=== PATIENT | male | born 1945 | race Caucasian/White ===

== ENCOUNTER → 2017-02-01 | Outpatient (CLI) | payer OTHER ==
--- NOTE | 2017-02-23 12:26 | EEG ---
DATE OF SERVICE: 02/01/2017 REASON FOR TESTING: Syncope. DESCRIPTION OF THE PROCEDURE: This EEG was performed using a 21 channel digital electroencephalograph, following international 10-20 system. DESCRIPTION OF RECORDING: From the beginning of the tracing, note the patient' s eyes closed. The background rhythm was mostly consisting of 8 Hz alpha frequency in the posterior occipital leads. No obvious asymmetry is seen. Frequent muscle artifacts are noticed. Photic stimulation was performed with no driving response see. No pathological waves were elicited. More frequent muscle artifacts are seen later in the tracing. Occasional movement artifacts are also seen. The patient remains alert throughout the tracing. No epileptiform discharges were seen. His EKG leads showed a regular rate and rhythm. INTERPRETATION: This awake EEG can be considered within normal limits. There is no asymmetry seen. No epileptiform discharges were noticed. The absence of epileptiform discharges does not rule out the diagnosis of epilepsy, therefore, clinical correlation is recommended. MTDD
== END | disposition home or self-care (01) ==
LOC: NEUROMAIN 08:50
PROVIDERS: ATTEND Internal Medicine
DX: R55 Syncope and collapse (principal)
CPT/HCPCS: 95819

== ENCOUNTER → 2021-04-04 | Outpatient (CLI) | payer OTHER ==
[2021-04-05 01:28] LABS: Hemoglobin A1C 7.5 % (4.0-6.0)
[2021-04-05 15:51] LABS: Urine Creatinine 145.2 mg/dL
[2021-04-05 20:17] LABS: African American GFR (CKD) 61.9 (60.0-200.0); Albumin/Globulin Ratio 2.38 (1.60-3.17); Anion Gap 16.8 mmol/L (4.00-12.00); BUN/Creat Ratio 16.15 Ratio (12.00-20.00); Calcium 9.6 mg/dL (8.7-10.3); Carbon Dioxide 23.2 mmol/L (21.6-31.8); Globulin 2.1 g/dL (1.6-3.3); Non-African American GFR(CKD) 53.4 (60.0-200.0); Potassium 5.6 mmol/L (3.5-5.5); Total Bilirubin 0.3 mg/dL (0.2-1.2); Total Protein 7.1 g/dL (6.2-8.2)
== END | disposition home or self-care (01) ==
LOC: LABWHC1 15:44
PROVIDERS: ATTEND Internal Medicine
DX: E11.9 Type 2 diabetes mellitus without complications (principal)
CPT/HCPCS: 36415; 80053; 82043; 82570; 83036

== ENCOUNTER → 2021-05-30 | Outpatient (CLI) | payer OTHER ==
--- NOTE | 2021-05-30 14:27 | CTL ---
EXAMINATION TYPE: CT Low Dose Lung DATE OF EXAM ORDERED: 05/30/2021 HISTORY: 75-year-old male Z87.891, personal history of tobacco use. Shortness of breath. Lung cancer screening CT DLP: 165.[address] CTDI: 4.2 mGy Automated exposure control for dose reduction was used. SCREENING VISIT: Baseline COMPARISON: None TECHNIQUE: Low dose computed tomography scan was performed through the chest with coronal and sagitta l reconstructions. CT DIAGNOSTIC QUALITY: Satisfactory FINDINGS: Heart normal size without pericardial effusion. Left-sided epicardial fat pad. Scattered three-vessel coronary artery calcifications are present. Mild aortic valvular calcifications. Borderline ectasia ascending aorta 3.5 cm and upper descending thoracic aorta 3.0 cm. Mild atheroscle rotic arch calcifications with conventional branching anatomy. Trace bilateral gynecomastia. No thoracic lymphadenopathy by CT size criteria. Mild diffuse bronchial wall thickening. No consolidation or pleural effusion. Mild centrilobular emp hysema. 4 mm right mid lung pulmonary nodule, axial image 148. 3 mm peripheral right upper lobe pulmonary nodule, axial image 62. 3 mm posterior right upper lobe pulmonary nodule, axial image 38. Tiny hiatal hernia. Visualized upper abdomen otherwise shows no gross abnormality. 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 Mild superior endplate deformity L1 suggesting age indeterminate compression injury. IMPRESSION: 1. LungRADS 2, Benign; a few 4 mm and smaller pulmonary nodules on baseline screening. 2. COPD with mild emphysema. Three-vessel coronary artery calcifications. Recommend smoking cessation . 3. Age-indeterminate mild superior endplate deformity of L1. Clinically correlate. CT LUNG RAD AND CT CHEST RECOMMENDATION: Lung-Rad 2 Benign Appearance or Behavior: Continue annual sc reening with LDCT in 12 months.
== END | disposition home or self-care (01) ==
LOC: RADCTMAIN 12:59
DX: R91.1 Solitary pulmonary nodule (principal); J43.9 Emphysema, unspecified; M43.8X6 Other specified deforming dorsopathies, lumbar region
CPT/HCPCS: 71271

== ENCOUNTER → 2023-04-09 | Outpatient (CLI) | payer OTHER ==
--- NOTE | 2023-04-09 12:55 | CT ---
EXAMINATION TYPE: CT lumbar spine wo con DATE OF EXAM: 04/09/2023 12:48 PM COMPARISON: None HISTORY: low back pain Technique: CT DLP: 942 mGycm Automated exposure control for dose reduction was used. Unenhanced CT of the lumbar spine was performed. Bone and soft tissue window settings are submitted as well as coronal and sagittal reconstructions. Findings: There is an acute superior corner fracture of the posterior L1 vertebral segment with mild proximal 1 0% retropulsion. Remaining lumbar vertebral segments are normal in height and alignment. There is mil d degenerative disc disease throughout the lumbar region with mild spondylosis and mild disc space na rrowing. There is mild vacuum phenomenon at the L3-4 and L5-S1 levels. The facet joints are intact. Sacrum and SI joints are normal. The paraspinal soft tissues are unremar kable. IMPRESSION: 1. Acute Fracture of the L1 vertebral segment with slight retropulsion as described above. 2. Mild degenerative disease throughout the lumbar region.
== END | disposition home or self-care (01) ==
LOC: RADCTMAIN 11:38
DX: M51.36 Other intervertebral disc degeneration, lumbar region (principal); S32.019A Unspecified fracture of first lumbar vertebra, initial encounter for closed fracture; M47.816 Spondylosis without myelopathy or radiculopathy, lumbar region; M48.061 Spinal stenosis, lumbar region without neurogenic claudication; R93.89 Abnormal findings on diagnostic imaging of other specified body structures; X58.XXXA Exposure to other specified factors, initial encounter
CPT/HCPCS: 72131

== ENCOUNTER → 2023-06-11 | Outpatient (CLI) | payer OTHER ==
--- NOTE | 2023-06-14 08:39 | MR ---
EXAMINATION TYPE: MR lumbar spine wo con DATE OF EXAM: 06/11/2023 10:36 AM CLINICAL INDICATION:Male, 77 years old with history of M54.50 low back pain; PHH, Low back pain COMPARISON: None TECHNIQUE: Multi planar, multi sequence imaging was performed utilizing: T1-weighted, T2-weighted, a nd turbo inversion recovery imaging of the lumbar spine. IV Contrast: cc . (None if empty) FINDINGS: Alignment: The lumbar vertebral bodies have preserved heights and alignment. Cord: The conus medullaris and the distal spinal cord appear unremarkable with regards to their signa l intensity and morphology. Bones/Discs: Disc degeneration changes with osteophyte formation disc space narrowing. Some bony imani a on the L1 vertebral body with low signal linear suspected fracture line extending superiorly. T12-L1: No evidence of significant spinal canal stenosis or neural foraminal stenosis. L1-L2: Disc bulge and facet joint arthropathy result in mild to moderate spinal canal and moderate to severe bilateral neural foraminal stenosis. L2-L3: Disc bulge and facet joint arthropathy result in mild spinal canal and moderate bilateral neur al foraminal stenosis. L3-L4: Disc bulge and facet joint arthropathy result in mild spinal canal and moderate bilateral neur al foraminal stenosis. L4-L5: Disc bulge and facet joint arthropathy result in mild spinal canal and moderate to severe bila teral neural foraminal stenosis. L5-S1: Disc bulge and facet joint arthropathy result in mild spinal canal and moderate to severe bila teral neural foraminal stenosis. No significant spinal canal or neural foraminal stenosis in the remainder of the visualized levels. Other findings: None. IMPRESSION: Findings compatible with prior CT with subacute L1 superior endplate fracture. This results in mild t o moderate spinal canal stenosis and moderate to severe bilateral neural foraminal stenosis.
== END | disposition home or self-care (01) ==
LOC: RADMRIMAIN 08:58
PROVIDERS: ATTEND Orthopaedic Surgery
DX: S32.010A Wedge compression fracture of first lumbar vertebra, initial encounter for closed fracture (principal); M48.061 Spinal stenosis, lumbar region without neurogenic claudication; M99.73 Connective tissue and disc stenosis of intervertebral foramina of lumbar region
CPT/HCPCS: 72148

== ENCOUNTER → 2024-04-13 | Outpatient (CLI) | payer OTHER ==
--- NOTE | 2024-04-13 13:14 | CTL ---
EXAMINATION TYPE: CT Low Dose Lung DATE OF EXAM ORDERED: 04/13/2024 HISTORY: . Lung cancer screening CT DLP: 141.3 mGycm Automated exposure control for dose reduction was used. SCREENING VISIT: Subsequent COMPARISON: 05/30/2021 TECHNIQUE: Low dose computed tomography scan was performed through the chest at 1 mm thick sections a nd reconstructed images in the coronal plane at [address] DIAGNOSTIC QUALITY: Satisfactory FINDINGS: LUNG NODULES: Present, detailed below: 1. There is a 0.3 cm peripheral posterior lateral right upper lobe punctate nodule. Series 4 image 6. Present previously. 2. There is a 0.4 cm posterior right midlung density. Series 4 image 173. LUNGS: COPD: Severity: None Fibrosis: Severity: None Lymph nodes: No enlarged lymph nodes Other findings: None RIGHT PLEURAL SPACE: Effusion: None Calcification: None Thickening: None Pneumothorax: None LEFT PLEURAL SPACE: Effusion: None Calcification: None Thickening: None Pneumothorax: None HEART: Heart Size: Normal Coronary calcification: Mild Pericardial effusion: None OTHER FINDINGS: Upper abdomen: Normal Bony thorax: Normal Supraclavicular region: Normal Other: None IMPRESSION: Benign-appearing or benign behavior findings. No suspicious changes for primary or metast atic neoplasm. FOLLOW UP CT CHEST RECOMMENDATION: Follow-up low-dose CT chest one year CT LUNG RAD: Lung-Rad 2 Benign Appearance or Behavior [facility], , 04/13/2024 1:12 PM
== END | disposition home or self-care (01) ==
LOC: RADCTMAIN 09:17
CPT/HCPCS: 71271